=== PATIENT | female | born 1940 | race Caucasian/White ===

== ENCOUNTER → 2017-01-20 | Outpatient (CLI) | payer OTHER | LOC: FIMAGING 09:20 | PROVIDERS: ATTEND Internal Medicine | DX: Z12.31 Encounter for screening mammogram for malignant neoplasm of breast (principal) | CPT/HCPCS: G0202 ==

== ENCOUNTER 2017-02-01 10:55 | Day surgery (SDC) | payer OTHER ==
[2017-02-01] MEDS ORDERED: LIDOCAINE 1% 2 ML INJ ID PRN (11:26)
[2017-02-01] MEDS ORDERED: LR 1,000 ML IV ONE (11:26)
[2017-02-01 11:54] VITALS: RESP 18
[2017-02-01] MEDS ORDERED: ceFAZolin 2 GM/DEXTROSE 100 ML IV ONE (12:11)
--- NOTE | 2017-02-01 12:11 | PDGENHP ---
History & Physical Chief Complaint: day of surgery, scheduled for HAV, HT, 2nd MT repair right
--- NOTE | 2017-02-01 12:14 | PDANEPAE ---
ANE History of Present Illness 76 year old female presents for right foot bunionectomy and hammer toe repair. Patient with history of migraine headaches and hypothyroidism. ANE Past Medical History - Cardiovascular History Hx Hypertension: No Hx Arrhythmias: No Hx Chest Pain: No Hx Coronary Artery / Peripheral Vascular Disease: No Hx CHF / Valvular Disease: No Hx Palpitations: No - Pulmonary History Hx COPD: No Hx Asthma/Reactive Airway Disease: No Hx Recent Upper Respiratory Infection: No Hx Oxygen in Use at Home: No Hx Sleep Apnea: No Sleep Apnea Screening Result - Last Documented: Negative - Neurologic History Hx Cerebrovascular Accident: No Hx Seizures: No Hx Dementia: No Neurologic History Comment: prone to occ migraines - Endocrine History Hx Diabetes: No Hypothyroid: Yes Hyperthyroid: No Obesity: no Endocrine History Comment: hypothyroid - Renal History Hx Renal Disorders: No Renal History Comment: UTI 10-31 - Liver History Hx Hepatic Disorders: No - Neurological & Psychiatric Hx Hx Neurological and Psychiatric Disorders: No - Cancer History Hx Cancer: No - Congenital Disorder History Hx Congenital Disorders: No - GI History GERD: no Hx Gastrointestinal Disorders: No - Other Health History Other Health History: R foot bunion and hammer toe 2nd metatarsal - Chronic Pain History Chronic Pain: No - Surgical History Prior Surgeries: rotator cuff sx. cervical fusion. R thumb sx ANE Review of Systems Review of systems is: negative Review of Systems: - Exercise capacity Exercise capacity: >=4 METS METS (RN): 4 METS ANE Patient History - Allergies Allergies/Adverse Reactions: azithromycin [From Zithromax] Allergy (Verified 01/02/17 15:59) Vomiting diazepam [From Valium] Allergy (Verified 01/02/17 15:59) Vomiting Sulfa (Sulfonamide Antibiotics) Allergy (Verified 01/02/17 15:59) Other-Enter Comments - Home Medications Home medications: home medication list seen and reviewed Home Medications: Amitriptyline HCl 01/02/17 [Last Taken 1 Week Ago ~01/25/17] IMITREX 01/02/17 [Last Taken 1 Week Ago ~01/25/17] Synthroid 01/02/17 [Last Taken 02/01/17 06:30] - NPO status NPO Status: no food or drink >8 hours NPO Since - Liquids (Date): 02/01/17 NPO Since - Liquids (Time): 09:30 NPO Since - Solids (Date): 01/31/17 NPO Since - Solids (Time): 20:00 - Anes Hx Anes Hx: no prior problems - Smoking Hx Smoking Status: Never smoked - Alcohol Use Alcohol Use: None - Family Anes Hx Family Anes Hx: neg - N/A ANE Labs/Vital Signs - Vital Signs Vital Signs: reviewed preoperatively; see RN documention for details Blood Pressure: 120/74 Heart Rate: 65 Respiratory Rate: 18 O2 Sat (%): 97 Height: 162.56 cm Weight: 65.771 kg ANE Physical Exam - Airway Neck exam: FROM Mallampati Score: Class 2 Mouth exam: abnormal chin - Pulmonary Pulmonary: no respiratory distress - Cardiovascular Cardiovascular: regular rate and rhythym - ASA Status ASA Status: II ANE Anesthesia Plan Anesthesia Plan: MAC Total IV Anesthesia: Yes
[2017-02-01] MEDS ORDERED: BUPIVACAINE 0.5% 30 ML SDV ONE (12:24)
[2017-02-01] MEDS ORDERED: ROPIVACAINE HCL 20 MG/10 ML INJ EP ONE (12:25)
[2017-02-01] MEDS ORDERED: PROPOFOL/EMULSION 500 MG/50 ML BOTTLE IV ONE ×3 (12:43→13:57)
[2017-02-01] MEDS ORDERED: LIDOCAINE 1% 300 MG/30 ML SDV ONE (12:48)
[2017-02-01] MEDS ORDERED: LR 500 ML IV PRN (13:39)
[2017-02-01] MEDS ORDERED: MEPERIDINE 25 MG/ML SYR IVP PRN (13:39)
[2017-02-01] MEDS ORDERED: fentaNYL 100 MCG/2 ML INJ IVP PRN (13:39)
[2017-02-01] MEDS ORDERED: NALOXONE HCL 0.4 MG/ML INJ IVP PRN (13:39)
[2017-02-01] MEDS ORDERED: BACITRACIN 50,000 UNITS/10 ML SYR IRR ONE (13:55)
[2017-02-01] MEDS ORDERED: POLYMYXIN B SULFATE 500,000 UNIT/10 ML SYR IRR ONE (13:55)
[2017-02-01] MEDS ORDERED: PHENYLEPHRINE HCL 100 MCG/ML SYR ONE (14:31)
[2017-02-01] MEDS ORDERED: ONDANSETRON 4 MG/2 ML VIAL ONE (14:56)
--- NOTE | 2017-02-01 15:13 | POSTOPPROG ---
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
[2017-02-01] MEDS ORDERED: ONDANSETRON 4 MG/2 ML VIAL IVP PRN (15:14)
[2017-02-01] MEDS ORDERED: OXYCODONE/APAP 5/325 TAB PO PRN (15:14)
[2017-02-01] MEDS ORDERED: ONDANSETRON DISINTEGRATING 4 MG TAB PO PRN (15:14)
--- NOTE | 2017-02-01 15:20 | POSTOPPROG ---
Post Op Note Date of Operation: 02/01/17 Surgeon: Neli Bosch Seed Cutter: Virginia Bosch Pre-op Diagnosis: HAV, MPV, HT, metatarsalgia 2nd with toe contracture, right Post-op Diagnosis: same Indication: pain Procedure: bunionectomy w/osteotomy, HT correction 2nd, osteotomy 2nd MT,Right Findings: some DJD first MTH Inf/Abcess present in the surg proc area at time of surgery?: No EBL: Minimal Complications: none
[2017-02-01 15:48] VITALS: BP 121/74
[2017-02-01 16:37] VITALS: PULSE 77; TEMP 97.5; O2SAT 96
--- NOTE | 2017-02-01 17:55 | POSTANESTH ---
Post Anesthetic Evaluation Cardiovascular Status: Normal, Stable, Similar to Pre-Op Cond Respiratory Status: Normal, Stable, Similar to Pre-op Cond. Level of Consciousness/Mental Status: Can Participate in Eval, Alert and Oriented Pain Control: Adequate, Prn Tx Ordered Nausea/Vomiting Control: Adequate, Prn Tx Ordered Complications Possibly Related to Anesthesia: None Noted
--- NOTE | 2017-02-02 04:55 | GOP ---
[f rep st] OPERATIVE REPORT DATE OF OPERATION: 02/01/2017 SURGEON: Neli Bosch DPM FORMULA BOTTLER: Virginia Bosch DPM. ANESTHESIA: IV Sedation, "light general" ANESTHESIOLOGIST: Luis Evans MD. PREOPERATIVE DIAGNOSIS: Painful second hammertoe deformity with metatarsalgia, associated with a long second metatarsal and contracture at the second metatarsophalangeal joint, hallux abductovalgus with metatarsus primus varus, all right foot. 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 PROCEDURE PERFORMED: Hammertoe correction involving arthrodesis of the proximal interphalangeal joint with a screw fixation, shortening second metatarsal osteotomy with screw fixation, bunionectomy with distal osteotomy procedure first metatarsal, all right foot. FINDINGS: DESCRIPTION OF PROCEDURE: The patient presented to the hospital approximately an hour and a half prior to foot surgery after having been NPO past midnight. The patient's preoperative history and physical and all lab studies were reviewed, and there was no contraindication to the proposed procedures. The patient was given 2 g of Ancef IV one half hour prior to foot surgery. The patient was taken to the OR room and placed on the OR table in a supine position where the appropriate anesthetic agents were administered. This was supplemented with a local block to the right foot, involving posterior tibial nerve block at the level of the tarsal tunnel and Smith blocks to the bases of the first and second metatarsals utilizing a total of 20 cc of a mixture including 8 cc Naropin 0.2%, 6 cc of 1% lidocaine plain, and 6 cc of 0.5% Marcaine plain. The right lower extremity was then prepped and draped in the usual aseptic fashion, and covered with a sterile stockinette. A sterile pneumatic ankle tourniquet was applied and padded well underneath with Webril. Utilizing elevation overlying Esmarch bandage, the right foot was exsanguinated , and the tourniquet was inflated to a pressure of 225 mmHg. The foot was lowered to the orthopedic table. Attention was then directed to the dorsal medial aspect of the first metatarsophalangeal joint right foot, where an approximate 5 cm linear longitudinal incision was made. This incision was deepened through the subcutaneous tissues, to the level of the capsular tissues taking care to preserve the neurovascular structures. Any bleeders were clamped and cauterized as needed. Subcutaneous tissues were freed from the medial capsular tissues. A linear capsular incision was then made, in the same plain as the skin incision, and the capsular tissues were reflected off the dorsal medial and medial aspects of the first metatarsal head and distal shaft region. The hypertrophic bone medial aspect of the first metatarsals were resected and placed on the back table. A 0.045 K-wire was then advanced in a medial to lateral direction through the center of the head of the first metatarsal to serve as an access guide. Two osteotomies were then created to the distal first metatarsal head region utilizing the sagittal saw. The first osteotomy was initiated at the level of the K-wire and extended plantarly and proximally. The second osteotomy was initiated at the K-wire and extended dorsally and proximally. The second osteotomy was 1 and a half to 2 times the length of the first osteotomy. The K-wire was removed and the first metatarsal head was shifted laterally approximately 4 to 5 mm, and impacted upon the shaft of the metatarsal. The K-wire was advanced across the osteotomy site for temporary fixation. Two K-wires for the [place] headless screw system was then placed in the dorsal to distal, plantar to proximal direction crossing the osteotomy site. Utilizing standard technique, two 2.5 headless paragon screws measuring 60 mL in length were placed over the guidewires. The guidewires were removed and the osteotomy site was stable, well aligned and well approximated. The medial shelf of bone was then resected utilizing the sagittal saw. Any remaining prominent bony borders were remodeled to a smooth surface utilizing a bone rasp. A 0.035 K-wire was utilized to create drill holes to the area of the articular defects noted to the medial aspect of the head of the first metatarsal. The area of the articular defect where there was erosion of all articular cartilage involved a 4 x 6 mm region. Surgical site was copiously irrigated with a sterile saline bacitracin solution. A C-Arm was utilized to review alignment, which was optimal. The first metatarsophalangeal joint was rectus. The capsular tissues were reapproximated with 2-0 and 3-0 Vicryl. The subcutaneous tissues were reapproximated with 4-0 Monocryl. A wet Ray-Dejah gauze dressing was applied to the first ray. Attention was then directed to the dorsal aspect of the 2nd digit just distal to the proximal interphalangeal joint where a curvilinear incision was initiated and extended proximally coursing laterally over the second metatarsophalangeal joint, then proximally over the second metatarsal. The incision was deepened through the subcutaneous tissues to the level of the extensor tendon taking care to preserve the neurovascular structures. Any bleeders were clamped and cauterized as needed. A transverse incision was made to extensor tendon at the level of the proximal interphalangeal joint, and freed from the surrounding soft tissue structures in a distal to proximal fashion, extending proximal to the extensor hwang. A transverse capsulotomy incision was made at the level of the proximal interphalangeal joint and the capsular tissues were reflected off the head of the proximal phalanx and base of the middle phalanx to expose the articular heads. Utilizing the sagittal saw , the articulating surfaces of the head of the proximal phalanx and base of the middle pharynx were resected perpendicular to the shafts of the phalanges and placed on the back table. Attention was then directed to the dorsal aspect of the second metatarsophalangeal joint where a linear capsular incision was made. The capsular tissues were freed from the dorsal and medial aspects of head of the second metatarsal. Utilizing the sagittal saw, a distal dorsal to plantar proximal osteotomy was performed, initiated at the dorsal aspect of the articular surface of the second metatarsal head extending proximally. The second metatarsal head was then shifted proximally upon the shaft and shortened 3 to 4 mm. A 0.045 K-wire was placed across the osteotomy site for temporary fixation. Two guidewires for the [place] headless screw system were then placed across the osteotomy sites in the dorsal plantar direction. Utilizing standard technique, drill holes were created over the guidewires, and first the distal screw was placed, which was a 2.5 headless screw measuring 14 mm in length. The second screw placed over the proximal K-wire was a 2.0 headless [place] screw measuring 12 mm in length. The K-wires were removed and the osteotomy site was stable and well aligned. A C-Arm was utilized to check alignment, which was optimal. Attention was redirected to the proximal interphalangeal joint of the second digit, where a glass technician/installer hole was placed through the center aspect of the head of the proximal phalanx. A guidewire was then advanced through the central aspect of the base of the middle phalanx and extended distally so as to exit the distal tip of the second digit. The middle phalanx was then held flush against the proximal phalanx, and the guidewire was advanced proximally into the shaft of the proximal phalanx. A headless 2.0 [place] screw measuring 34 mm in length was placed over the guidewire. A C-Arm was checked and alignment was optimal; however, since the bone was soft and fairly osteopenic a decision was made to remove this screw and place a larger screw, and a screw longer length for stability. Over the guidewire, a 2.5 headless [place] screw was applied measuring 38 mm in length. A C-Arm was utilized and AP and oblique views were obtained revealing good placement of the screw. The arthrodesis site was flushed. Surgical sites were copiously irrigated with a sterile saline bacitracin solution. The capsular tissue was reapproximated with 2-0 Vicryl. An extensor tendon lengthening procedure was performed and extensor tendon was reapproximated with 3-0 Vicryl. The subcutaneous tissues were reapproximated with 4-0 Monocryl. The tourniquet was released prior to capsular closure and there was immediate capillary refill to all digits and there was hemostasis. Again, the subcutaneous tissues were reapproximated with 4-0 Monocryl. The skin was reapproximated with 4-0 proline utilizing interrupted horizontal mattress sutures. An additional 10 cc of 0.5% Marcaine plain was given to proximal mid foot. A mildly compressive dry sterile gauze dressing was applied with a Xeroform, 4 x 4 gauze, Rahel, and Duke wrap. The patient tolerated the procedure and anesthesia well, was transferred to the recovery room with vital signs stable and vascular status intact to the right lower extremity. In the recovery room, the patient received postoperative oral and written home care instructions. The patient was instructed to wear the cast boot at all times when weightbearing, and is instructed to heel weightbearing utilizing crutches for ambulation assist. The patient was dispensed a Cryo/Cuff and instructed on its usage. The procedure went well without complications. Order were written for the patient to receive Toradol 30 mg prior to discharge. The patient will be given a prescription for oxycodone and Percocet to take postoperatively as prescribed for pain. The patient scheduled to follow up in the office in 2 days, but is to call the office earlier if any questions or problems should arise. /[id number]/MODL MTDD
== END 2017-02-01 16:28 | disposition home or self-care (01) ==
LOC: FSGY 10:55
PROVIDERS: ATTEND Podiatrist
DX: M20.11 Hallux valgus (acquired), right foot (principal); M20.41 Other hammer toe(s) (acquired), right foot; Q66.21 Congenital metatarsus primus varus; M77.41 Metatarsalgia, right foot; M19.071 Primary osteoarthritis, right ankle and foot; E03.9 Hypothyroidism, unspecified; Z86.010 Personal history of colon polyps
CPT/HCPCS: 28285; 28299; 28308; 73630; C1769; C1713; J0690; J2370; J2405; J2704; J2795

== ENCOUNTER → 2018-09-13 | Outpatient (CLI) | payer OTHER | LOC: FIMAGING 12:30 ==